=== PATIENT | female | born 1975 | race Caucasian/White ===

== ENCOUNTER → 2018-07-14 07:39 | Outpatient (CLI) | payer OTHER, MEDICAID, SELFPAY ==
[2018-07-14 08:46] LABS: Add Manual Diff / Slide Review NO; Basophils Percent Auto 0.8 % (0-2); Eosinophils Percent Auto 2.8 % (2-4); Hematocrit 45.8 % (36-46); Hemoglobin 15.8 g/dL (12.0-16.0); Lymphocytes Percent Auto 32.5 % (25-40); Mean Corpuscular HGB Conc 34.4 % (30-36); Mean Corpuscular Volume 92.8 fL (80-100); Monocytes Percent Auto 9.1 % (3-14); Neutrophils Absolute Auto 2400 /uL (3000-5900); Neutrophils Percent Auto 54.8 % (50-75); Platelet Count 199 X10^3/uL (150-400); Red Blood Cell Count 4.94 X10^6/uL (4.0-5.2); Red Cell Distribution Width 12.6 % (11.6-14.8); White Blood Cell Count 4.3 X10^3/uL (4.5-11.0)
[2018-07-14 09:22] LABS: Alanine Aminotransferase 40 IU/L (9-52); Albumin 4.4 g/dL (3.5-5.0); Albumin Globulin Ratio 1.6 (1.0-2.8); Alkaline Phosphatase 66 U/L (38-126); Aspartate Aminotransferase 38 IU/L (14-36); BUN Creatinine Ratio 13.8 (6-22); Bilirubin Total 1.1 mg/dL (0.2-1.3); Blood Urea Nitrogen 11 mg/dL (7-17); Calcium 9.9 mg/dL (8.4-10.2); Carbon Dioxide 27 mmol/L (22-32); Chloride 101 mmol/L (98-107); Cholesterol 253 mg/dL (140-199); Estimated Glomerular Filt Rate > 60.0 mL/min (>60); Globulin 2.7 g/dL (1.7-4.1); Glucose 89 mg/dL (70-100); HDL Cholesterol 67 mg/dL (40-60); HEMOLYSIS < 15 (0-50); LDL Cholesterol Calculated 172 mg/dL (<100); Potassium 4.2 mmol/L (3.4-5.1); Sodium 137 mmol/L (137-145); Total Protein 7.1 g/dL (6.3-8.2); Triglycerides 69 mg/dL (35-150)
[2018-07-14 09:37] LABS: Free T3, Triiodothyronine Free 3.53 pg/mL (2.77-5.27); Free T4, Direct Thyroxine 1.24 ng/dL (0.78-2.19)
[2018-07-14 09:51] LABS: Thyroid Stimulating Hormone 0.92 uIU/mL (0.47-4.68)
[2018-07-14 10:46] LABS: High Sensitivity CRP - Cardiac < 0.1 mg/L (1.0-3.0)
[2018-07-16 17:18] LABS: Homocysteine 7.1 umol/L (< 10.4)
[2018-07-17 09:44] LABS: Lipoprofile NMR SEE SEPARATE REPORTS
== END ==
PROVIDERS: PCP Nurse Practitioner Family; Visit Provider Nurse Practitioner Family
DX: I25.10 Atherosclerotic heart disease of native coronary artery without angina pectoris (principal); R63.5 Abnormal weight gain; Z95.5 Presence of coronary angioplasty implant and graft
CPT/HCPCS: 36415; 80053; 80061; 83090; 83704; 84439; 84443; 84481; 85025; 86140

== ENCOUNTER 2021-05-05 16:04 | Emergency (ER) | payer SELFPAY ==
--- NOTE | 2021-05-05 16:25 | DI.RAD.S_ITS ---
PROCEDURE: XR CHEST 1V INDICATIONS: chest pain TECHNIQUE: One view of the chest was acquired. COMPARISON: [facility], , CHEST 1 VIEW, 07/17/2017, 6:46. FINDINGS: Surgical changes and devices: None. Lungs and pleura: Lungs are clear. No pleural effusions or pneumothorax. Mediastinum: Mediastinal contours appear normal. Heart size is normal. Bones and chest wall: No suspicious bony lesions. Overlying soft tissues appear unremarkable. IMPRESSION: Normal for age, source of current chest pain symptoms is not seen. Dictated by: Allen Gonzalez M.D. on 05/05/2021 at 16:18 Approved by: Allen Gonzalez M.D. on 05/05/2021 at 16:18
[2021-05-05 16:26] VITALS: BP 140/91; PULSE 83; RESP 18; TEMP 37.1; O2SAT 98; BMI 27.4
[2021-05-05 16:54] LABS: Add Manual Diff / Slide Review NO; Basophils Absolute Auto 100 /uL (0-100); Basophils Percent Auto 0.7 % (0-2); Eosinophils Absolute Auto 0 /uL (0-450); Eosinophils Percent Auto 0.4 % (2-4); Hematocrit 46.7 % (36-46); Hemoglobin 15.9 g/dL (12.0-16.0); Lymphocytes Absolute Auto 1900 /uL (1100-4500); Lymphocytes Percent Auto 24.1 % (25-40); Mean Corpuscular HGB Conc 34.1 % (30-36); Mean Corpuscular Hemoglobin 32.2 PG (26-34); Mean Corpuscular Volume 94.3 fL (80-100); Monocytes Absolute Auto 600 /uL (0-900); Neutrophils Absolute Auto 5200 /uL (1500-7000); Neutrophils Percent Auto 66.8 % (50-75); Platelet Count 190 X10^3/uL (150-400); Red Blood Cell Count 4.95 X10^6/uL (4.0-5.2); Red Cell Distribution Width 12.8 % (11.6-14.8); White Blood Cell Count 7.8 X10^3/uL (4.5-11.0)
[2021-05-05 17:10] LABS: Alanine Aminotransferase 37 IU/L (<35); Albumin 4.5 g/dL (3.5-5.0); Albumin Globulin Ratio 1.5 (1.0-2.8); Alkaline Phosphatase 59 U/L (38-126); Aspartate Aminotransferase 33 IU/L (14-36); BUN Creatinine Ratio 25.7 (6-22); Bilirubin Total 0.5 mg/dL (0.2-1.3); Blood Urea Nitrogen 19 mg/dL (7-17); Calcium 10.3 mg/dL (8.4-10.2); Carbon Dioxide 23 mmol/L (22-32); Chloride 106 mmol/L (98-107); Creatine Kinase 38 U/L (30-135); Estimated Glomerular Filt Rate > 60.0 mL/min (>60); Globulin 3.1 g/dL (1.7-4.1); Glucose 97 mg/dL (70-100); HEMOLYSIS < 15 (0-50); Lipase 57 U/L (23-300); Potassium 3.7 mmol/L (3.4-5.1); Sodium 137 mmol/L (137-145); Total Protein 7.6 g/dL (6.3-8.2)
[2021-05-05 17:16] VITALS: PULSE 74; RESP 28; O2SAT 96
[2021-05-05 17:17] VITALS: BP 131/77; PULSE 72; RESP 19; O2SAT 96
[2021-05-05 17:22] LABS: Troponin I < 0.012 ng/mL (0.01-0.034)
[2021-05-05 17:30] VITALS: PULSE 65; RESP 16; O2SAT 97
[2021-05-05 18:00] VITALS: PULSE 64; RESP 18; O2SAT 96
--- NOTE | 2021-05-05 18:11 | ED_ITS ---
HPI - Chest Pain General Chief Complaint: Chest Pain Stated Complaint: heart palpitations/chest pain/hx of heart prob Time Seen by Provider: 05/05/21 16:42 Source: patient Mode of arrival: Ambulatory Limitations: no limitations History of Present Illness HPI narrative: 45-year-old woman with a history of myocardial infarction and stent placement in 2018 presents with increasing palpitations that she has noticed intermittently since mother's Day. She describes the palpitations as and intermittently fluttery type feeling in her chest that is not painful. She actively works out and does not have any chest pain associated with exercise. She has been off all medications to since 2018 in her primary care physician has since retired. She is also having some moderate beverley menopausal type symptoms including irregular menses, increasing fatigue, anxiety, she also notes that she is working more and feeling increasingly stressed recently. Related Data Home Medications Medication Instructions Recorded Confirmed acetaminophen [Tylenol Extra #0 07/17/17 05/21/18 Strength] aspirin 81 mg PO QDAY #0 09/26/17 05/21/18 clopidogrel 75 mg PO QDAY #0 09/26/17 05/21/18 lisinopril 2.5 mg PO QDAY #0 09/26/17 05/21/18 Previous Rx's Medication Instructions Recorded FERROUS SULFATE 325 mg PO BID #30 tab 10/07/17 metoprolol tartrate 25 mg PO BID PRN #60 tab 05/05/21 Allergies Allergy/AdvReac Type Severity Reaction Status Date / Time No Known Drug Allergies Allergy Verified 05/05/21 16:18 Review of Systems Review of Systems Narrative: Pertinent positive and negative findings as per HPI Remainder of review of systems is otherwise unremarkable for Constitutional: Fevers, chills, weakness ENT: No sore throat, neck pain, ear pain CV: Chest pain, dyspnea on exertion Respiratory: Cough, wheeze, dyspnea GI: Nausea, vomiting, diarrhea, change in bowel habits, black or bloody stools : Dysuria, hematuria, flank pain MS: Muscle weakness, numbness, joint swelling or warmth Patient History Medical History (Updated 05/05/21 @ 18:51 by Leia Carolina MD) Anemia (~2016) Heavy menstrual period (~1983) History of frequent headaches (~2016) Infertility (~1994) Myocardial infarction (~2016) Surgical History (Updated 05/21/18 @ 21:06 by Shanna Perez) History of heart artery stent (~08/18/17) Family History (Updated 10/13/17 @ 00:00 by Conversion Provider) Mother Age: 66 Rheumatoid arthritis Sister Age: 44 Heart disease Social History Smoking Status: Never smoker Smoking Status: Never smoker Substance Use Type: does not use Exam Narrative Exam Narrative: General: Healthy appearing, in no acute distress. Able to give a complete and coherent history. Well-nourished well-developed HEENT: Moist mucous membranes, normal sclera with reactive pupils, Neck: No JVD, supple, no thyroid masses or nodules and no thyroid bruits Respiratory: Lungs are clear to auscultation, no wheezing no rales no rhonchi. Full and symmetrical air movement Cardiac: Regular rate and rhythm no murmurs no bruits Abdomen: Soft, nontender, good bowel tones, no flank pain Skin: Warm and dry, no rashes Neurologic: Grossly neurologically intact with no obvious asymmetries or abnormalities Extremities: No trauma, well perfused Psych: Cooperative, appropriate insight and affect Initial Vital Signs Initial Vital Signs: Vital Signs Temperature 98.7 F 05/05/21 16:26 Pulse Rate 83 05/05/21 16:26 Respiratory Rate 18 05/05/21 16:26 Blood Pressure 140/91 H 05/05/21 16:26 Pulse Oximetry 98 05/05/21 16:26 Course Orders Ordered: Discontinued Medications Metoprolol Tartrate (Metoprolol Ir 25 Mg Tablet) 25 mg PO NOW ONE Stop: 05/05/21 18:47 Last Admin: 05/05/21 18:55 Dose: 25 mg Documented by: PEDRITO Vital Signs Vital signs: Vital Signs - 8 hr 05/05/21 18:00 05/05/21 18:30 Pulse Rate 64 78 Respiratory Rate 18 28 H Pulse Oximetry 96 97 MDM - Chest Pain Medical Records Data Attestation: I reviewed the patient's medical records. Lab Data Attestation: I reviewed the patient's lab results. Result diagrams: 05/05/21 16:42 05/05/21 16:42 Labs: Lab Results 05/05/21 05/05/21 05/05/21 Range/Units 16:42 16:42 16:42 WBC 7.8 (4.5-11.0) X10^3/uL RBC 4.95 (4.0-5.2) X10^6/uL Hgb 15.9 (12.0-16.0) g/dL Hct 46.7 H (36-46) % MCV 94.3 (80-100) fL MCH 32.2 (26-34) PG MCHC 34.1 (30-36) % RDW 12.8 (11.6-14.8) % Plt Count 190 (150-400) X10^3/uL Neut % (Auto) 66.8 (50-75) % Lymph % (Auto) 24.1 L (25-40) % Calloway % (Auto) 8.0 (3-14) % Eos % (Auto) 0.4 L (2-4) % Baso % (Auto) 0.7 (0-2) % Neut # (Auto) 5200 (3915-1792) /uL Lymph # (Auto) 1900 (1021-7518) /uL Calloway # (Auto) 600 (0-900) /uL Eos # (Auto) 0 (0-450) /uL Baso # (Auto) 100 (0-100) /uL Sodium 137 (137-145) mmol/L Potassium 3.7 (3.4-5.1) mmol/L Chloride 106 (98-107) mmol/L Carbon Dioxide 23 (22-32) mmol/L BUN 19 H (7-17) mg/dL Creatinine 0.74 (0.52-1.04) mg/dL Estimated GFR > 60.0 (>60) mL/min BUN/Creatinine Ratio 25.7 H (6-22) Glucose 97 (70-100) mg/dL Calcium 10.3 H (8.4-10.2) mg/dL Total Bilirubin 0.5 (0.2-1.3) mg/dL AST 33 (14-36) IU/L ALT 37 H (<35) IU/L Alkaline Phosphatase 59 (38-126) U/L Total Creatine Kinase 38 (30-135) U/L CK-MB (CK-2) TNP CK-MB (CK-2) Rel Index TNP Troponin I < 0.012 (0.01-0.034) ng/mL Total Protein 7.6 (6.3-8.2) g/dL Albumin 4.5 (3.5-5.0) g/dL Globulin 3.1 (1.7-4.1) g/dL Albumin/Globulin Ratio 1.5 (1.0-2.8) Lipase 57 (23-300) U/L TSH 1.72 (0.47-4.68) uIU/mL FSH mIU/mL 05/05/21 Range/Units 16:42 WBC (4.5-11.0) X10^3/uL RBC (4.0-5.2) X10^6/uL Hgb (12.0-16.0) g/dL Hct (36-46) % MCV (80-100) fL MCH (26-34) PG MCHC (30-36) % RDW (11.6-14.8) % Plt Count (150-400) X10^3/uL Neut % (Auto) (50-75) % Lymph % (Auto) (25-40) % Calloway % (Auto) (3-14) % Eos % (Auto) (2-4) % Baso % (Auto) (0-2) % Neut # (Auto) (6171-5218) /uL Lymph # (Auto) (3569-6635) /uL Calloway # (Auto) (0-900) /uL Eos # (Auto) (0-450) /uL Baso # (Auto) (0-100) /uL Sodium (137-145) mmol/L Potassium (3.4-5.1) mmol/L Chloride (98-107) mmol/L Carbon Dioxide (22-32) mmol/L BUN (7-17) mg/dL Creatinine (0.52-1.04) mg/dL Estimated GFR (>60) mL/min BUN/Creatinine Ratio (6-22) Glucose (70-100) mg/dL Calcium (8.4-10.2) mg/dL Total Bilirubin (0.2-1.3) mg/dL AST (14-36) IU/L ALT (<35) IU/L Alkaline Phosphatase (38-126) U/L Total Creatine Kinase (30-135) U/L CK-MB (CK-2) CK-MB (CK-2) Rel Index Troponin I (0.01-0.034) ng/mL Total Protein (6.3-8.2) g/dL Albumin (3.5-5.0) g/dL Globulin (1.7-4.1) g/dL Albumin/Globulin Ratio (1.0-2.8) Lipase (23-300) U/L TSH (0.47-4.68) uIU/mL FSH 3.40 mIU/mL Imaging Data Chest x-ray: Radiologist's Impression: FINDINGS: Surgical changes and devices: None. Lungs and pleura: Lungs are clear. No pleural effusions or pneumothorax. Mediastinum: Mediastinal contours appear normal. Heart size is normal. Bones and chest wall: No suspicious bony lesions. Overlying soft tissues appear unremarkable. IMPRESSION: Normal for age, source of current chest pain symptoms is not seen. Dictated by: Allen Gonzalez M.D. on 05/05/2021 at 16:18 ECG Data Attestation: I personally reviewed and interpreted this ECG as follows: Interpretation: Sinus rhythm at a rate of 84 PACs appreciated Rightward axis No acute ischemic changes MDM Narrative Medical decision making narrative: 45-year-old woman with a history of an non STEMI requiring stent in 2018 presents with around 6 weeks of palpitations. She is having frequent PACs noted on telemetry and EKG in the emergency department and these are the symptoms that she has been noticing. Blood work is entirely unremarkable as is chest x-ray. Talked about using as needed metoprolol to help decrease the rate of PACs when they are most symptomatic. She does need to reestablish with a primary care physician and already has an appointment scheduled with the stile ripsaw operator talk about perimenopause and symptoms associated with that. Have added TSH and FSH to her blood work in anticipation of follow up as above Discharge Plan Departure Patient Disposition: Home Clinical Impression: PAC (premature atrial contraction), Heart palpitations, Situational stress Instructions: DI for Palpitations Activity Restrictions/Additional Instructions: Thank you for coming in today Your blood work, EKG and chest x-ray were all reassuring today. In watching your heart rhythm, your having PACs, premature atrial contractions. These are absolutely benign but can certainly be very irritating I have given you a dose of metoprolol in the emergency department. You can use 25 mg of metoprolol up to 2 times a day as needed for symptomatic palpitations. A prescription has been electronically transmitted to [facility] for you to fruit picker machine operator tomorrow Please do follow-up with your OBGYN regarding perimenopause, palpitations can be frequent during perimenopause. You also need to reestablish care with a primary care physician you can contact our health human resource internship at [phone] to help find a primary care physician in the [place] area You have worsening symptoms or develops actual pain, please make sure you return to the emergency department Prescriptions: New metoprolol tartrate 25 mg tablet 25 mg PO BID PRN (Reason: symptomatic palpitations) Qty: 60 RF: 0 No Action acetaminophen [Tylenol Extra Strength] 500 MG tablet Qty: 0 RF: 0 clopidogrel 75 MG tablet 75 mg PO QDAY Qty: 0 RF: 0 aspirin 81 MG tablet,delayed release (DR/EC) 81 mg PO QDAY Qty: 0 RF: 0 lisinopril 2.5 MG tablet 2.5 mg PO QDAY Qty: 0 RF: 0 FERROUS SULFATE 325 mg PO BID Qty: 30 RF: 0 Referrals: Gertrude Alex ARNP [Primary Care Provider] -
[2021-05-05 18:30] VITALS: PULSE 78; RESP 28; O2SAT 97
[2021-05-05] MEDS: METOPROLOL IR 25 MG TABLET PO (18:55)
[2021-05-05 19:27] LABS: Thyroid Stimulating Hormone 1.72 uIU/mL (0.47-4.68)
== END 2021-05-05 19:20 | disposition home or self-care (01) ==
PROVIDERS: Emergency Medicine; Emergency Provider Emergency Medicine; PCP Nurse Practitioner Family
DX: I49.1 Atrial premature depolarization (principal); R00.2 Palpitations; F43.9 Reaction to severe stress, unspecified
CPT/HCPCS: 36415; 71045; 80053; 82550; 83001; 83690; 84443; 84484; 85025; 93005; 99284

== ENCOUNTER → 2022-06-22 09:10 | Outpatient (CLI) | payer OTHER, SELFPAY ==
--- NOTE | 2022-06-22 | DI.MG.S_ITS ---
BILATERAL DIGITAL SCREENING MAMMOGRAM 3D/2D WITH CAD: 06/22/2022 CLINICAL: Baseline exam Routine screening. Family history of breast cancer. No prior exams were available for comparison. The tissue of both breasts is heterogeneously dense. This may lower the sensitivity of mammography. Current study was also evaluated with a Computer Aided Detection (CAD) system. No significant masses, calcifications, or other findings are seen in either breast. IMPRESSION: NEGATIVE There is no mammographic evidence of malignancy. A 1 year screening mammogram is recommended. Based on the Tyrer Cuzick model (a risk assessment model) the patient's lifetime risk is 10.0% and her 10 year risk is 2.0%. According to the ACR, ACS, and NCCN guidelines, an annual breast MRI exam along with mammogram is recommended if the patient's lifetime risk is 20% or greater. This exam was interpreted at Station ID: [id number]. NOTE: For mammograms, a report in lay terms will be sent to the patient. Approximately 15% of breast malignancies will not be visualized mammographically. In the management of a palpable breast mass, a negative mammogram must not discourage biopsy of a clinically suspicious lesion. Electronically Signed By: Blair muñoz/katy:06/24/2022 07:28:03 letter sent: Normal Exam ACR BI-RADS Category 1: Negative 3341F
== END ==
DX: Z12.31 Encounter for screening mammogram for malignant neoplasm of breast (principal); Z80.3 Family history of malignant neoplasm of breast
CPT/HCPCS: 77063; 77067

== ENCOUNTER 2023-01-03 08:29 | Day surgery (SDC) | payer OTHER, SELFPAY ==
[2023-01-02 14:25] VITALS: BMI 29.1
[2023-01-03] VITALS (7 sets, daily range): BP systolic 106–126; BP diastolic 69–82; PULSE 52–83; RESP 12–18; TEMP 36.1–36.8; O2SAT 97–99; BMI 29.1
--- NOTE | 2023-01-03 | PATH_ITS ---
[facility] Accession Number: [id number] No. of containers..01 Tissue . 01 Material submitted: . endometrium - ENDOMETRIAL CURETTINGS . 01 Diagnosis: Endometrium, Curettage: Weakly proliferative endometrium with no diagnostic abnormality. Negative for atypical hyperplasia or malignancy. MRV 01/08/2023 1833 Local . 01 Electronically signed: . Jesse Phipps MD, PhD, Pathologist NPI- [id number] . 01 Gross description: . ENDOMETRIAL CURETTINGS: Received in formalin are minute fragments of mucoid and hemorrhagic material measuring 2.5 x 1.7 x 0.1 cm in aggregate. Submitted in toto in 1 cassette. /CPE 01/04/2023 1003 Local . 01 Pathologist provided ICD-10: N92.1 . 01 CPT . 109910 Specimen Comment: A courtesy copy of this report has been sent to [phone] Performed at: 01 [facility] [address] [place] [address] Suite [facility], [place], [place] [id number] MD Elmo Avalos MD Phone: [phone]
[2023-01-03] MEDS: LACTATED RINGERS 1,000 ML 100 ML IV (09:04)
--- NOTE | 2023-01-03 09:49 | PM.HP.1 ---
History of Present Illness History of Present Illness Date Patient Seen: 01/03/23 Time Patient Seen: 09:50 Chief complaint: PELVIC Narrative: Patient is a 47-year-old 3 para 1 who presents for an IUD removal and reinsertion and a D&C. This is being done due to IUD being in the lower uterine segment and a thickened endometrial lining with heavy vaginal bleeding. Patient History Medical History (Updated 05/20/21 @ 00:00 by ) Anemia (~2016) Heavy menstrual period (~1983) History of frequent headaches (~2016) Infertility (~1994) Myocardial infarction (~2016) Surgical History (Updated 05/21/18 @ 21:06 by Shanna Perez) History of heart artery stent (~08/18/17) Family & Social History Family History (Updated 10/13/17 @ 00:00 by Conversion Provider) Mother Age: 68 Rheumatoid arthritis Sister Age: 46 Heart disease Social History: household members none Tobacco & Substance use: Tobacco type cigarettes Smoking Status Former smoker alcohol intake current alcohol intake frequency holiday/special occasion Substance Use Type does not use Meds Home Medications and Allergies Home Medications Medication Instructions Recorded Confirmed Type acetaminophen 500 mg tablet ##0 07/17/17 12/31/22 History (Tylenol Extra Strength) aspirin 81 mg tablet,delayed 81 mg PO QDAY ##0 09/26/17 01/03/23 History release Allergies Allergy/AdvReac Type Severity Reaction Status Date / Time No Known Drug Allergies Allergy Verified 12/31/22 09:55 Exam Vital Signs (past 8 hours): - 01/03/23 08:50 Temperature 97.5 F L Pulse Rate 75 Respiratory Rate 16 Blood Pressure 114/73 Pulse Oximetry 97 Oxygen Delivery Method Room Air Oxygen Delivery Method Room Air Narrative Exam Narrative: HEENT: [No thyromegaly, no anterior cervical or supraclavicular lymphadenopathy.] Lungs:[Clear to auscultation bilaterally, no wheezes.] Cardiovascular: [Regular rate and rhythm, no murmurs, rubs, or gallops]. Abdomen: [No scars. No hepatosplenomegaly. No masses palpable.] External genitalia: [Normal] Vagina: [Normal] Cervix: [Normal] Bimanual exam: [[8] Week size uterus. Mobile.] No adnexal masses or tenderness Ultrasound: IUD in lower uterine segment with thickened endometrial lining. Assessment & Plan Assessment & Plan narrative: Assessment: 47-year-old 3 para 1 with IUD in lower uterine segment, menorrhagia, and thickened endometrial lining Plan: IUD removal, D&C, and IUD replacement The risks, benefits, and alternatives to the procedure were explained to the patient. The risks including bleeding, infection, and uterine perforation. She understands these risks and agrees to proceed. A full par Q was held and consent form was signed. Time Spent With Patient Time with patient: less than 30 minutes Critical Care time: I spent a total of [] minutes of critical care time on this patient's care today; this time is exclusive of procedural time.
--- NOTE | 2023-01-03 09:52 | PM.PREOP ---
Pre-operative Note COVID-19 Criteria for continued procedure: Non-surgical alternatives not available or appropriate per current SOC Interval Note History & Physical reviewed/Exam performed by Physician: Yes Changes to H&P: No H&P completed within 30 days and has changed as indicated here:: 01/03/23
--- NOTE | 2023-01-03 10:25 | SUR.OPER ---
Lithotomy on padded OR bed, head on pillow, arms secured on padded arm boards at <90 degrees abduction. Legs secured in padded yellow fins stirrups.
[2023-01-03] MEDS: LIDOCAINE 1% 20 ML INJ (10:44)
--- NOTE | 2023-01-03 10:44 | PM.GYNOP.1 ---
Operative Date/Time/Diagnoses Date of procedure: 01/03/23 Time of procedure: 10:44 Pre-op diagnosis: IUD in lower uterine segment Thickened endometrial lining Menorrhagia Post-op diagnosis: same Procedure & Clinicians Procedure: Procedures Operation Date: 01/03/23 09:45 Actual Procedure Side Surgeon p Intrauterine Device Removal and Insertion of new device, Suction D&C MD gonsalo Samson Dilation and Curettage Kacy Vargas MD Indications: IUD in lower uterine segment Menorrhagia Thickened endometrial lining Surgeon: Kacy Vargas Anesthesia Type: General (LMA) Operative Notes Findings: 8 week size anteverted uterus IUD sitting in the lower uterine segment Large amount of endometrial curetting Closure Type: not applicable Specimen(s): endometrial curettings Estimated blood loss (mL): 10 Blood products transfused: none Procedure in detail: After informed consent was obtained, the patient was taken to the operating room where she was placed in the dorsal supine position. After adequate LMA general anesthesia was achieved, she was placed in the dorsal lithotomy position, and prepped and draped in the usual sterile fashion. A time-out was performed. A bivalve speculum was placed into the vagina and the anterior lip of the cervix was grasped with a single-tooth tenaculum. The IUD strings were visible proximally 5 cm outside of the cervical os. These were grasped with a ring forcep and the IUD was removed without difficulty. Sharp curettage was performed yielding a large amount of endometrial curettings. Using the # 7 suction curette, the endometrial lining was removed. The suction curette was removed from the uterus. The Mirena IUD was placed without difficulty. The strings were cut to 1.5 cm. A single-tooth tenaculum was removed from the anterior lip of the cervix. The bivalve speculum was removed from the vagina. Sponge, lap, and instrument counts were correct x2. The patient tolerated the procedure well, and was taken to PACU in stable condition. Complications: none Post-operative Condition: stable Disposition: PACU Plan for aftercare: Home after recovery
== END 2023-01-03 11:15 | disposition home or self-care (01) ==
PROVIDERS: Referring Provider Obstetrics & Gynecology; Visit Provider Obstetrics & Gynecology
PROC: (CPT 58120; principal; 2023-01-03 09:45)
PROC: (CPT 58120; 2023-01-03 09:45)
DX: N92.0 Excessive and frequent menstruation with regular cycle (principal); R93.89 Abnormal findings on diagnostic imaging of other specified body structures; Z30.432 Encounter for removal of intrauterine contraceptive device; Z30.430 Encounter for insertion of intrauterine contraceptive device; T83.32XA Displacement of intrauterine contraceptive device, initial encounter
CPT/HCPCS: 58120; 58301; 58300; J2250; J2704; J3010; J7298

== ENCOUNTER → 2024-01-02 17:29 | Outpatient (CLI) | payer OTHER, SELFPAY ==
[2024-01-02 18:07] LABS: Add Manual Diff / Slide Review NO; Basophils Absolute Auto 0 /uL (0-100); Basophils Percent Auto 0.6 % (0-2); Eosinophils Absolute Auto 100 /uL (0-450); Hematocrit 44.8 % (36-46); Hemoglobin 15.3 g/dL (12.0-16.0); Lymphocytes Absolute Auto 2700 /uL (1100-4500); Mean Corpuscular Hemoglobin 31.7 PG (26-34); Mean Corpuscular Volume 93.3 fL (80-100); Monocytes Absolute Auto 700 /uL (0-900); Monocytes Percent Auto 9.2 % (3-14); Neutrophils Absolute Auto 3800 /uL (1500-7000); Neutrophils Percent Auto 52.2 % (50-75); Platelet Count 218 X10^3/uL (150-400); Red Cell Distribution Width 12.8 % (11.6-14.8); White Blood Cell Count 7.3 X10^3/uL (4.5-11.0)
[2024-01-02 18:19] LABS: Alanine Aminotransferase 29 IU/L (<35); Albumin 4.3 g/dL (3.5-5.0); Albumin Globulin Ratio 1.4 (1.0-2.8); Alkaline Phosphatase 56 U/L (38-126); Aspartate Aminotransferase 30 IU/L (14-36); BUN Creatinine Ratio 22.4 (6-22); Bilirubin Total 0.5 mg/dL (0.2-1.3); Blood Urea Nitrogen 15 mg/dL (7-17); Calcium 9.5 mg/dL (8.4-10.2); Carbon Dioxide 28 mmol/L (22-32); Chloride 101 mmol/L (98-107); Estimated Glomerular Filt Rate > 60 mL/min (>60); Glucose 85 mg/dL (70-100); HEMOLYSIS 22 (0-50); Potassium 3.8 mmol/L (3.4-5.1); Sodium 136 mmol/L (137-145); Total Protein 7.3 g/dL (6.3-8.2)
[2024-01-05 15:29] LABS: Cholesterol HDL Ratio 3.8 ratio (0.0-4.4); Cholesterol,Total 203 mg/dL (100-199); HDL Cholesterol 54 mg/dL (>39); LDL Cholesterol Cal 127 mg/dL (0-99); Triglycerides 123 mg/dL (0-149); VLDL Cholesterol Cal 22 mg/dL (5-40)
== END ==
PROVIDERS: Referring Provider Nurse Practitioner Family; Visit Provider Nurse Practitioner Family
DX: E78.5 Hyperlipidemia, unspecified (principal); D72.819 Decreased white blood cell count, unspecified
CPT/HCPCS: 36415; 80053; 80061; 85025